=== PATIENT | female | born 1965 | race Caucasian/White ===

== ENCOUNTER 2021-08-13 20:05 | Emergency (ER) | payer SELFPAY ==
[2021-08-13 20:43] LABS: Mean Corpuscular HGB CONC 33.4 g/dL (32.0-36.0); Mean Corpuscular Volume 83.7 fl (81.6-98.3); Mean Platelet Volume 12.1 fl (7.4-10.4); Platelet Count 58 10x3/uL (150-450); RBC Distribution Width 12.7 % (11.5-14.5); Red Blood Cell (RBC) Count 4.29 10x6/uL (3.90-5.03); White Blood Cell (WBC) Count 6.4 10x3/uL (3.5-10.5)
[2021-08-13 20:49] LABS: MDiff Complete? YES
[2021-08-13] MEDS ORDERED: Ondansetron PF 4 MG/2 ML Vial ONE (20:53)
[2021-08-13 20:57] LABS: ALT (SGPT) 16 U/L (8-55); AST (SGOT) 18 U/L (5-34); Albumin 2.8 g/dL (3.5-5.0); Alkaline Phosphatase 176 U/L (40-110); Anion Gap 25 mmol/L (10-20); BUN (Urea Nitrogen) 56 mg/dL (9.8-20.1); Bilirubin, Total 0.7 mg/dL (0.2-1.2); Calc. Creatinine Clearance 0 mL/min (70-130); Calcium 7.7 mg/dL (7.8-10.44); Carbon Dioxide 21 mmol/L (22-29); Chloride 79 mmol/L (98-107); Lipase 13 U/L (8-78); Potassium 3.8 mmol/L (3.5-5.1); Protein, Total 5.8 g/dL (6.0-8.3); Sodium 121 mmol/L (136-145)
[2021-08-13 20:59] LABS: Band 5 % (5-11); Eosinophils 1 % (0-10); Lymphocytes 3 % (21-51); Monocytes 3 % (0-10); Neutrophil 88 % (42-75)
[2021-08-13 21:00] LABS: Platelet Morphology Comment Appears Decreased; Toxic Granulation SLIGHT; Vacuoles SLIGHT
[2021-08-13 21:04] LABS: Glucose 945 mg/dL (70-105)
[2021-08-13] MEDS ORDERED: INSULIN REGULAR IN 0.9 % NACL 100 UNIT/100 ML BAG ONE (21:09)
[2021-08-13 21:17] LABS: Actual Bicarbonate (HCO3v) 26 mEq/L (22-28); Base Excess 1.2 mEq/L (-2.0 to +3.0); Calcium, Ionized (venous) 1.04 mmol/L (1.16-1.32); Chloride (VBG) 81 mmol/L (98-106); Potassium (VBG) 3.84 mmol/L (3.70-5.30); Puncture Site Other Site; Sodium 121.3 mmol/L (133-146)
[2021-08-13] MEDS ORDERED: NS 0.9% w/ 20 MEQ KCL 1,000 ML ONE ×2 (21:25→23:17)
[2021-08-13 21:34] LABS: Bilirubin Neg (Negative); Blood, Urine 250 (Negative); Clarity Clear (Clear); Glucose, Urine (Dipstick) >=1000 mg/dL (Negative); Ketone, Urine 15 mg/dL (Negative); Leukocyte 25 (Negative); Nitrite Negative (Negative); Protein, Urine (Dipstick) 30 mg/dl (Neg-Trace); Urobilinogen Normal mg/dL (Less than 2)
[2021-08-13 21:37] LABS: SARS-CoV-2 NAA Rapid Test Not Detected (NotDetected)
[2021-08-13 21:43] LABS: Bacteria/HPF 4+ HPF (None Seen); Squamous Epithelial 0-3 HPF (0-3)
[2021-08-13 22:34] LABS: Glucose POC Confirmation 726 mg/dl (70-105)
[2021-08-13 23:48] LABS: Glucose POC Confirmation 640 mg/dl (70-105)
== END 2021-08-13 23:25 | disposition short-term general hospital (02) ==
LOC: CSHERS 20:05
DX: E11.10 Type 2 diabetes mellitus with ketoacidosis without coma (principal); Z79.4 Long term (current) use of insulin
CPT/HCPCS: 36416; 51701; 80053; 81003; 81015; 82010; 82805; 83690; 85025; 93005; 93010; 96365; 96366; 96375; J1815; J2405; J3480; U0002

== ENCOUNTER 2022-02-12 12:10 | Emergency (ER) | payer OTHER ==
[2022-02-12] MEDS ORDERED: traMADol HCl 50 MG TAB ONE (12:39)
== END 2022-02-12 13:28 | disposition home or self-care (01) ==
LOC: CSHERS 12:10
DX: I82.4Y1 Acute embolism and thrombosis of unspecified deep veins of right proximal lower extremity (principal); M86.9 Osteomyelitis, unspecified; Z79.01 Long term (current) use of anticoagulants; E11.9 Type 2 diabetes mellitus without complications
CPT/HCPCS: 99283

== ENCOUNTER 2022-02-23 13:44 | Outpatient (CLI) | payer OTHER, SELFPAY | END 2022-02-23 13:45 | disposition home or self-care (01) | LOC: CSHWCC 13:44 | PROVIDERS: ATTEND Nurse Practitioner Family | DX: L89.154 Pressure ulcer of sacral region, stage 4 (principal) | CPT/HCPCS: 99204; G0463 ==